=== PATIENT | female | born 1965 | race Hispanic/Latino ===

== ENCOUNTER 2024-11-15 20:06 | Emergency (ER) | payer MEDICARE, OTHER ==
[~2024-11-15] VITALS: Ht 162.6 cm; Wt 70.3 kg
[~2024-11-15 20:06] MED LIST: AMOXICILLIN250 MG PO; CYMBALTA30 MG PO; FLONASE TOP; IBUPROFEN600 MG PO; PROAIR HFA INH8.5 GM INH; TIMOLOL MALEATE10 MG PO; ULTRAM50 MG PO
[2024-11-15 20:18] VITALS: PULSE 90; RESP 17; TEMP 98.1
[2024-11-15] MEDS ORDERED: AMOX TR-K CLV1 EAC2 PO (20:37)
[2024-11-15 23:11] VITALS: BP 100/57; PULSE 90; RESP 17; TEMP 98.1; O2SAT 99
== END 2024-11-15 20:41 | disposition home or self-care (01) ==
LOC: FSED 20:12
DX: S01.551A Open bite of lip, initial encounter (principal); W50.3XXA Accidental bite by another person, initial encounter; Y92.89 Other specified places as the place of occurrence of the external cause; I10 Essential (primary) hypertension; M81.0 Age-related osteoporosis without current pathological fracture; K21.9 Gastro-esophageal reflux disease without esophagitis; M79.7 Fibromyalgia; M54.2 Cervicalgia; G89.29 Other chronic pain
CPT/HCPCS: 99283